=== PATIENT | male | born 1945 | race Caucasian/White ===

== ENCOUNTER 2018-05-26 18:48 | Emergency (ER) | payer MEDICARE, OTHER ==
--- NOTE | 2018-05-26 18:54 | ER Report ---
History and Physical Time Seen By MD: 18:54 HPI/ROS CHIEF COMPLAINT: Intoxicated, ground level fall, right posterior scalp abrasion/ wound HISTORY OF PRESENT ILLNESS: 73-year-old male brought in by the EMS from home after a ground-level fall on rocks. The surface was level. He fell backwards scraping his left occipital parietal region. There is some encrusted blood in his scalp. There is no marina notable laceration at this time. Patient's thinks he sustained LOC. He has numerous beers on board. He appears grossly intoxicated with slurred speech. He denies neck pain. He presents ambulatory with EMS, not in a cervical collar. Patient of movement of extremities 4. Patient denies visual change. Patient denies headache, patient denies vomiting. Patient denies blood thinners, but takes an aspirin daily. Patient refusing care. He refused care by EMS. Patient doesn't know when his last tetanus booster was. REVIEW OF SYSTEMS: Respiratory: No cough, no dyspnea. Cardiovascular: No chest pain, no palpitations. Gastrointestinal: No vomiting, no abdominal pain. Musculoskeletal: No back pain. Allergies: Coded Allergies: Sulfa (Sulfonamide Antibiotics) (Verified Allergy, Severe, RASH, 05/26/18) terbinafine (Verified Allergy, Severe, HIVES, 05/26/18) amoxicillin (Verified Adverse Reaction, Severe, nausea and vomiting, ) clavulanic acid (Verified Adverse Reaction, Severe, nausea and vomiting, ) Home Meds Reported Medications Cholecalciferol (Vitamin D3) (VITAMIN D) 2,000 Unit Tablet, 2 TAB PO QDAY 09/23/14 Fluticasone Propionate (FLOVENT HFA) 110 Mcg [place], 2 PUFF INH DAILY 06/03/14 Montelukast Sodium (SINGULAIR) 10 Mg Tablet, 1 TAB PO QDAY 06/03/14 Metronidazole (METROGEL) 60 Gm Gel, 1 ANTHONY TOP QDAY, GEL 06/03/[address] [place] (IPRATROPIUM BROMIDE) 0.2 Mg/1 Ml Solution, 0.2 MG IH TID Y for asthma 06/03/14 Hydrochlorothiazide (HYDROCHLOROTHIAZIDE) 25 Mg Tablet, 1 TAB PO QDAY 06/03/14 Omeprazole Magnesium (PRILOSEC OTC) 20 Mg Tablet.dr, 1 TAB PO QDAY 06/03/14 Simvastatin (SIMVASTATIN) 40 Mg Tablet, 1 TAB PO QDAY, TAB 06/03/14 Losartan Potassium (COZAAR) 25 Mg Tablet, 1 TAB PO QDAY 06/03/14 Aspirin (ASPIRIN) 81 Mg Tab.chew, 1 TAB PO QDAY, TAB.CHEW 06/03/14 Past Medical/Surgical History Asthma, GERD, hypertension, hypercholesterolemia, sinusitis Reviewed Nurses Notes: Yes Old Medical Records Reviewed: Yes Smoking Status: Former Smoker Constitutional Vital Sign - Last 24 Hours 05/26/18 05/26/18 05/26/18 05/26/18 18:57 20:04 20:05 20:10 Temp 98.3 Pulse 89 76 73 Resp 16 B/P (MAP) 171/105 128/73 (91) Pulse Ox 92 92 95 O2 Delivery Room Air 05/26/18 05/26/18 05/26/18 20:25 20:30 20:40 Pulse 75 73 B/P (MAP) 128/61 (83) Pulse Ox 95 93 Physical Exam General Appearance: The patient is alert, has no immediate need for airway protection and no signs of toxicity. Palpation of the head and neck reveals gross abrasion to the right occipital parietal area with crusted blood in the scalp. There are no marina lacerations noted. Patient notes no tenderness on aggressive palpation of the cervical spine in the midline. There is no facial trauma. There is no dental trauma. Grossly slurred speech consistent with alcohol intoxication Eyes: Pupils equal and round no pallor or injection. PERRLA, EOMI, ENT, Mouth: Mucous membranes are moist. No dental trauma, heavy odor of EtOH Respiratory: There are no retractions, lungs are clear to auscultation. No chest wall tenderness Cardiovascular: Regular rate and rhythm. Gastrointestinal: Abdomen is soft and non tender, no masses, bowel sounds normal. Neurological: Alert and oriented 3, cranial nerves II through XII intact Skin: Warm and dry, no rashes. Musculoskeletal: Neck is supple non tender. Extremities are nontender, nonswollen and have full range of motion. No evidence of trauma DIFFERENTIAL DIAGNOSIS: After history and physical exam differential diagnosis was considered for head injury including but not limited to concussion, skull fracture, intraparenchymal contusion, alcohol intoxication, scalp contusion, scalp abrasion, scalp laceration subarachnoid, subdural and epidural hematoma. Medical Decision Making Data Points Result Diagram: 05/26/18200005/26/182000 Laboratory Hematology Test 05/26/18 20:01 Red Blood Count 5.06 M/uL (4.00-5.60) Mean Corpuscular Volume 86.5 fL (80.0-96.0) Mean Corpuscular Hemoglobin 30.9 pg (26.0-33.0) Mean Corpuscular Hemoglobin Concent 35.8 g/dL (32.0-36.0) Red Cell Distribution Width 13.6 % (11.5-14.5) Mean Platelet Volume 6.4 fL (7.2-11.1) Neutrophils (%) (Auto) 74.1 % (39.4-72.5) Lymphocytes (%) (Auto) 10.9 % (17.6-49.6) Monocytes (%) (Auto) 6.9 % (4.1-12.4) Eosinophils (%) (Auto) 7.6 % (0.4-6.7) Basophils (%) (Auto) 0.5 % (0.3-1.4) Nucleated RBC Relative Count (auto) 0.1 /100WBC Neutrophils # (Auto) 6.5 K/uL (2.0-7.4) Lymphocytes # (Auto) 1.0 K/uL (1.3-3.6) Monocytes # (Auto) 0.6 K/uL (0.3-1.0) Eosinophils # (Auto) 0.7 K/uL (0.0-0.5) Basophils # (Auto) 0.0 K/uL (0.0-0.1) Nucleated RBC Absolute Count (auto) 0.01 K/uL Prothrombin Time 13.2 seconds (12.0-14.4) Prothromb Time International Ratio 1.00 Activated Partial Thromboplast Time 26 seconds (23-35) Sodium Level 130 mmol/L (137-145) Potassium Level 3.2 mmol/L (3.5-5.0) Chloride Level 94 mmol/L (98-107) Carbon Dioxide Level 23 mmol/L (22-30) Blood Urea Nitrogen 13 mg/dl (9-21) Creatinine 0.90 mg/dl (0.66-1.25) Glomerular Filtration Rate Calc > 60.0 Random Glucose 76 mg/dl (75-110) Calcium Level 8.7 mg/dl (8.4-10.2) Total Bilirubin 0.6 mg/dl (0.2-1.3) Aspartate Amino Transf (AST/SGOT) 41 U/L (0-35) Alanine Aminotransferase (ALT/SGPT) 37 U/L (0-56) Alkaline Phosphatase 69 U/L (0-126) Total Protein 7.2 g/dl (6.3-8.2) Albumin 4.5 g/dl (3.5-5.0) Serum Alcohol 125 mg/dl Chemistry Test 05/26/18 20:01 White Blood Count 8.8 k/uL (4.5-11.0) Red Blood Count 5.06 M/uL (4.00-5.60) Hemoglobin 15.6 g/dL (14.0-18.0) Hematocrit 43.7 % (42.0-52.0) Mean Corpuscular Volume 86.5 fL (80.0-96.0) Mean Corpuscular Hemoglobin 30.9 pg (26.0-33.0) Mean Corpuscular Hemoglobin Concent 35.8 g/dL (32.0-36.0) Red Cell Distribution Width 13.6 % (11.5-14.5) Platelet Count 309 K/uL (150-450) Mean Platelet Volume 6.4 fL (7.2-11.1) Neutrophils (%) (Auto) 74.1 % (39.4-72.5) Lymphocytes (%) (Auto) 10.9 % (17.6-49.6) Monocytes (%) (Auto) 6.9 % (4.1-12.4) Eosinophils (%) (Auto) 7.6 % (0.4-6.7) Basophils (%) (Auto) 0.5 % (0.3-1.4) Nucleated RBC Relative Count (auto) 0.1 /100WBC Neutrophils # (Auto) 6.5 K/uL (2.0-7.4) Lymphocytes # (Auto) 1.0 K/uL (1.3-3.6) Monocytes # (Auto) 0.6 K/uL (0.3-1.0) Eosinophils # (Auto) 0.7 K/uL (0.0-0.5) Basophils # (Auto) 0.0 K/uL (0.0-0.1) Nucleated RBC Absolute Count (auto) 0.01 K/uL Prothrombin Time 13.2 seconds (12.0-14.4) Prothromb Time International Ratio 1.00 Activated Partial Thromboplast Time 26 seconds (23-35) Glomerular Filtration Rate Calc > 60.0 Calcium Level 8.7 mg/dl (8.4-10.2) Total Bilirubin 0.6 mg/dl (0.2-1.3) Aspartate Amino Transf (AST/SGOT) 41 U/L (0-35) Alanine Aminotransferase (ALT/SGPT) 37 U/L (0-56) Alkaline Phosphatase 69 U/L (0-126) Total Protein 7.2 g/dl (6.3-8.2) Albumin 4.5 g/dl (3.5-5.0) Serum Alcohol 125 mg/dl Coagulation Test 05/26/18 20:01 Prothrombin Time 13.2 seconds Prothromb Time International Ratio 1.00 Activated Partial Thromboplast Time 26 seconds Toxicology Test 05/26/18 20:01 Serum Alcohol 125 mg/dl EKG/Imaging Imaging Results: CT scan of the head was obtained. The results of the study are EXAMINATION: CT head without IV contrast HISTORY: Fell on rock. Laceration to the back of the head. TECHNIQUE: Axial CT images of the head were obtained from the vertex to the skull base without IV contrast, with coronal and sagittal 2D reconstructed images. One of the following dose optimization techniques was utilized in the performance of this exam: Automated exposure control; adjustment of the mA and/ or kV according to the patient's size; or use of an iterative reconstruction technique. Specific details can be referenced in the facility's radiology CT exam operational policy. COMPARISON: None. FINDINGS: Exam is positive for intracranial hemorrhage. There is a small subdural hematoma overlying the superior lateral right cerebral convexity. This measures up to 4 mm in maximal thickness overlying the superolateral right frontal parietal lobe. No mass effect. No evidence of additional intracranial hemorrhage. No midline shift. The ventricles are normal in caliber. The basal cisterns are patent. There is mild generalized parenchymal atrophy, with slight patchy low attenuation in the deep white matter, compatible with chronic small vessel ischemic change. Intracranial vascular calcifications. Hudson-white differentiation is maintained. Soft tissue swelling and laceration overlies the right parietal calvarium, with some radiopaque foreign body debris. No underlying skull fracture. The calvarium is intact. Scattered mucosal thickening in the partially visualized paranasal sinuses. The mastoid air cells are unopacified. IMPRESSION: 1. Acute small right subdural hematoma overlying the right cerebral convexity, measuring up to 4 mm in thickness. 2. No associated mass effect. No other acute intracranial findings. 3. Mild parenchymal atrophy. 4. Soft tissue swelling and laceration overlies the right parietal calvarium, with opaque foreign body debris. No underlying skull fracture. The study was read by the radiologist. I viewed the images myself on the PACS system. Results: CT scan of the C-spine without contrast was obtained. The results of the study are EXAMINATION: CT cervical spine without IV contrast HISTORY: Fall on rock. Laceration to the back of the head. TECHNIQUE: Thin axial CT images of the cervical spine were obtained without IV contrast, with sagittal and coronal 2D reconstructed images. One of the following dose optimization techniques was utilized in the performance of this exam: Automated exposure control; adjustment of the mA and/ or kV according to the patient's size; or use of an iterative reconstruction technique. Specific details can be referenced in the facility's radiology CT exam operational policy. COMPARISON: None. FINDINGS: The cervical spine is negative for acute fracture or subluxation. Chronic multilevel degenerative changes in the cervical spine. There is severe disc space narrowing at the C5-C6, C6-C7, and C7-T1 interspaces, with endplate osteophyte formation. There is mild chronic appearing anterior wedging of C5 and C6, with a localized cervical kyphosis. Disc spaces are otherwise preserved. Posterior elements are intact, with normal alignment along the cervical facet joints. Mild multilevel facet arthropathy. The dens is intact. The C1 ring is intact, with normal alignment at the craniocervical junction. IMPRESSION: 1. No acute osseous findings along the cervical spine. 2. Chronic multilevel degenerative changes, greatest at the C5-C7 levels, with associated kyphotic deformity. The study was read by the radiologist. I viewed the images myself on the PACS system. ED Course/Re-evaluation ED Course Patient was admitted to an examination room. H&P was done. The differential diagnoses was considered. Patient appears grossly intoxicated and cantankerous. He is barely cooperating for care. He wanted to sign out and leave. After his wound was cleaned. I encouraged him to stay and have a CT scan of his head and neck performed. The CT scan of the head shows a small subdural 4 mm. A peripheral IV was established. Diagnostic laboratory studies were ordered as well as a blood alcohol level. Patient's tetanus status was updated. [facility]. They do not have emergent neurosurgical capability. He'll be transferred to [facility]. Case was discussed with attending physician's there who accepted him for transfer. 05/26/2018 8:08:05 pm case was discussed with Dr. Gauthier neurosurgery and Dr. Coned ER attending, who accepted the patient for transfer to [facility]. Decision to Disposition Date: May 26, 2018 Decision to Disposition Time: 19:52 Critical Care Time I spent a total of 60 minutes of critical care time in obtaining history, performing a physical exam, bedside monitoring of interventions, collecting and interpreting tests and discussion with consultants but not including time spent performing procedures. Depart Departure Latest Vital Signs Vital Signs Date Time Temp Pulse Resp B/P (MAP) Pulse Ox O2 Delivery O2 Flow Rate FiO2 05/26/18 20:40 73 93 05/26/18 20:30 128/61 (83) 05/26/18 18:57 98.3 16 Room Air Impression: Primary Impression: Subdural hematoma Additional Impressions: Fall from ground level Scalp abrasion Alcohol intoxication Condition: Improved Disposition: XFER TO ACUTE CARE HOSPITAL Referrals: ISA FARLEY MD (PCP) Problem Qualifiers Additional Impressions: Scalp abrasion Encounter type: initial encounter Qualified Codes: S00.01XA - Abrasion of scalp, initial encounter Alcohol intoxication Complication of substance-induced condition: uncomplicated Qualified Codes: F10.920 - Alcohol use, unspecified with intoxication, uncomplicated STACIE ARGUETA DO May 26, 2018 18:54
[2018-05-26] MEDS ORDERED: DIPHTH/TETANUS/ACEL. PERTUSSIS IM ONLY ONE (19:00)
--- NOTE | 2018-05-26 19:55 | RADIOLOGY IMAGING REPORT ---
FACILITY: [facility] [place] PATIENT NAME: Benjamín Dee : 1945 MR: [id number] V: [id number] EXAM DATE: ORDERING PHYSICIAN: STACIE ARGUETA TECHNOLOGIST: Location: [facility] Patient: Benjamín Dee : 1945 Visit/Account:[id number] Date of Sevice: 05/26/2018 EXAMINATION: CT cervical spine without IV contrast HISTORY: Fall on rock. Laceration to the back of the head. TECHNIQUE: Thin axial CT images of the cervical spine were obtained without IV contrast, with sagit mil and coronal 2D reconstructed images. One of the following dose optimization techniques was utilized in the performance of this exam: Autom ated exposure control; adjustment of the mA and/or kV according to the patient's size; or use of an i terative reconstruction technique. Specific details can be referenced in the facility's radiology C T exam operational policy. COMPARISON: None. FINDINGS: The cervical spine is negative for acute fracture or subluxation. Chronic multilevel degenerative changes in the cervical spine. There is severe disc space narrowing a t the C5-C6, C6-C7, and C7-T1 interspaces, with endplate osteophyte formation. There is mild chronic appearing anterior wedging of C5 and C6, with a localized cervical kyphosis. Disc spaces are otherwis e preserved. Posterior elements are intact, with normal alignment along the cervical facet joints. Mild multilevel facet arthropathy. The dens is intact. The C1 ring is intact, with normal alignment at the craniocervical junction. IMPRESSION: 1. No acute osseous findings along the cervical spine. 2. Chronic multilevel degenerative changes, greatest at the C5-C7 levels, with associated kyphotic de formity. Findings were discussed with STACIE ARGUETA at 05/26/2018 7:47 PM. Report Dictated By: Armen Caruso MD at 05/26/2018 7:45 PM Report E-Signed By: Armen Caruso MD at 05/26/2018 7:51 PM WSN:[id number]
--- NOTE | 2018-05-26 19:55 | RADIOLOGY IMAGING REPORT ---
FACILITY: [facility] PATIENT NAME: Benjamín Dee : 1945 MR: [id number] V: [id number] EXAM DATE: ORDERING PHYSICIAN: STACIE ARGUETA TECHNOLOGIST: Location: [facility] Patient: Benjamín Dee : 1945 Visit/Account:[id number] Date of Sevice: 05/26/2018 EXAMINATION: CT head without IV contrast HISTORY: Fell on rock. Laceration to the back of the head. TECHNIQUE: Axial CT images of the head were obtained from the vertex to the skull base without IV c ontrast, with coronal and sagittal 2D reconstructed images. One of the following dose optimization techniques was utilized in the performance of this exam: Autom ated exposure control; adjustment of the mA and/or kV according to the patient's size; or use of an i terative reconstruction technique. Specific details can be referenced in the facility's radiology C T exam operational policy. COMPARISON: None. FINDINGS: Exam is positive for intracranial hemorrhage. There is a small subdural hematoma overlying the superi or lateral right cerebral convexity. This measures up to 4 mm in maximal thickness overlying the supe rolateral right frontal parietal lobe. No mass effect. No evidence of additional intracranial hemorrhage. No midline shift. The ventricles are normal in domenico iber. The basal cisterns are patent. There is mild generalized parenchymal atrophy, with slight patchy low attenuation in the deep white m atter, compatible with chronic small vessel ischemic change. Intracranial vascular calcifications. Gr ay-white differentiation is maintained. Soft tissue swelling and laceration overlies the right parietal calvarium, with some radiopaque forei gn body debris. No underlying skull fracture. The calvarium is intact. Scattered mucosal thickening in the partially visualized paranasal sinuses. The mastoid air cells are unopacified. IMPRESSION: 1. Acute small right subdural hematoma overlying the right cerebral convexity, measuring up to 4 mm i n thickness. 2. No associated mass effect. No other acute intracranial findings. 3. Mild parenchymal atrophy. 4. Soft tissue swelling and laceration overlies the right parietal calvarium, with opaque foreign bod y debris. No underlying skull fracture. Findings were discussed with STACIE ARGUETA at 05/26/2018 7:47 PM. Report Dictated By: Armen Caruso MD at 05/26/2018 7:41 PM Report E-Signed By: Aremn Caruso MD at 05/26/2018 7:52 PM WSN:[id number]
[2018-05-26 20:15] LABS: PLATELET COUNT, AUTOMATED 309 K/uL (150-450)
[2018-05-26 20:30] VITALS: BP 128/61
== END 2018-05-26 21:00 | disposition short-term general hospital (02) ==
LOC: ER 19:01
DX: S06.5X9A Traumatic subdural hemorrhage with loss of consciousness of unspecified duration, initial encounter (principal); F10.920 Alcohol use, unspecified with intoxication, uncomplicated; W18.30XA Fall on same level, unspecified, initial encounter
CPT/HCPCS: 70450; 72125; 85025; 85610; 85730; 90471; 90715; 99285; G0480; 80320; 82040; 82247; 82310; 82374; 82435; 82565; 82947; 84075; 84132; 84155; 84295; 84450; 84460; 84520

== ENCOUNTER → 2018-05-26 | Outpatient (CLI) | payer MEDICARE, OTHER ==
[~2018-05-26] MED LIST: ASPI81TA94 PO; CHOL200022 PO; FLU45SYR17 IM; FLUINH INH; HYDR-2966 PO; IPRA0.2S8 IH; LOSA25TA47 PO; MET60GMPT TOP; MONT10TA PO; OMEP-218 PO; PRE5 PO; SIMV-54 PO
== END ==
LOC: AMB 20:46
PROVIDERS: ATTEND Nurse Practitioner
DX: S06.5X9A Traumatic subdural hemorrhage with loss of consciousness of unspecified duration, initial encounter (principal)
CPT/HCPCS: A0425; A0426